=== PATIENT | male | born 1995 | race African-American/Black ===

== ENCOUNTER 2017-03-11 00:08 | Emergency (ER) | payer OTHER ==
[~2017-03-11] VITALS: Ht 167.6 cm; Wt 65.0 kg
[~2017-03-11 00:08] MED LIST: IBUPROFEN600 MG PO; NAPROSYN500 MG PO; ZANTAC150 MG PO
[2017-03-11 00:57] LABS: HEMATOCRIT 46.4 % (38.0-50.0); MCH 29.5 PG (29.0-34.0); MCHC 33.8 G/DL (30.0-36.0); MCV 87.1 FL (86-99); PLATELET COUNT 258 K/uL (156-360); RBC DIS.WIDTH-CV 12.8 % (11.8-14.6); RBC DIS.WIDTH-SD 40.3 % (39-53); RED BLOOD COUNT 5.33 M/uL (4.00-5.50); WHITE BLOOD COUNT 6.3 K/uL (4.1-10.2)
[2017-03-11 01:05] LABS: CHLORIDE 103 mEq/L (99-109); SODIUM 140 mEq/L (136-147)
[2017-03-11 01:07] LABS: GLUCOSE 96 mg/dL (70-99)
[2017-03-11 01:09] LABS: ANION GAP 9 MEQ/L (2-14)
[2017-03-11 01:11] LABS: GFR ESTIMATE (CALCULATED) > 59 mL/min/
[2017-03-11 01:12] LABS: UREA NITROGEN (BUN) 12 mg/dL (9-23)
[2017-03-11 01:18] LABS: TROP-I INTERPRETATION NEGATIVE; TROPONIN-I < 0.01 ng/mL (0.0-0.30)
[2017-03-11 04:01] LABS: TOTAL BILIRUBIN 0.8 mg/dL (0.0-1.0)
[2017-03-11 04:02] LABS: ALKALINE PHOSPHATASE 58 IU/L (3-129)
[2017-03-11 04:04] LABS: DIRECT BILIRUBIN 0.2 mg/dL (0.0-0.3)
[2017-03-11 04:05] LABS: LIPASE 26 U/L (1.0-51.0)
[2017-03-11] MEDS ORDERED: ZOFRAN8 MG PO (04:37)
[2017-03-11] MEDS ORDERED: PEPCID20 MG PO (04:37)
[2017-03-11 05:20] VITALS: BP 109/87
[2017-03-11] MEDS ORDERED: CIPRO500 MG PO (23:12)
== END 2017-03-11 05:22 | disposition home or self-care (01) ==
LOC: EME 00:08
DX: R10.13 Epigastric pain (principal)
CPT/HCPCS: 71020; 76705; 80048; 80076; 83690; 84484; 85027; 93005; 99281; 99284

== ENCOUNTER 2017-03-11 20:00 | Emergency (ER) | payer OTHER ==
[~2017-03-11] VITALS: Ht 167.6 cm; Wt 65.5 kg
[~2017-03-11 20:00] MED LIST changes: +PEPCID20 MG PO; +ZOFRAN8 MG PO
[2017-03-11 21:02] LABS: HEMATOCRIT 44.5 % (38.0-50.0); MCH 29.4 PG (29.0-34.0); MCHC 33.9 G/DL (30.0-36.0); MCV 86.7 FL (86-99); MEAN PLAT.VOLUME 11.4 uM^3 (9.0-12.4); PLATELET COUNT 225 K/uL (156-360); RBC DIS.WIDTH-CV 12.6 % (11.8-14.6); RBC DIS.WIDTH-SD 40.2 % (39-53); RED BLOOD COUNT 5.13 M/uL (4.00-5.50); WHITE BLOOD COUNT 7.1 K/uL (4.1-10.2)
[2017-03-11 21:14] LABS: CHLORIDE 104 mEq/L (99-109); POTASSIUM 3.8 mEq/L (3.7-5.4); SODIUM 139 mEq/L (136-147)
[2017-03-11 21:16] LABS: GLUCOSE 120 mg/dL (70-99)
[2017-03-11 21:17] LABS: ANION GAP 9 MEQ/L (2-14)
[2017-03-11 21:19] LABS: ALKALINE PHOSPHATASE 45 IU/L (3-129)
[2017-03-11 21:20] LABS: GFR ESTIMATE (CALCULATED) > 59 mL/min/
[2017-03-11 21:21] LABS: UREA NITROGEN (BUN) 9 mg/dL (9-23)
[2017-03-11 21:22] LABS: TOTAL BILIRUBIN 0.5 mg/dL (0.0-1.0)
[2017-03-11 21:23] LABS: LIPASE 19 U/L (1.0-51.0)
[2017-03-11 21:32] LABS: ADD MIUA? YES; BILIRUBIN NEGATIVE; BLOOD SMALL; COLOR YELLOW ((YELLOW)); GLUCOSE (STRIP) NEGATIVE; KETONES NEGATIVE; LEUKOCYTES LARGE; NITRITE NEGATIVE; PROTEIN (STRIP) NEGATIVE; SPECIFIC GRAVITY 1.008 (1.000-1.030); UROBILINOGEN 0.2 MG/DL (0.2-1.0)
[2017-03-11 22:17] LABS: WHITE BLOOD CELLS TNTC /HPF (0-5)
[2017-03-11 22:18] LABS: BACTERIA 1+ /HPF; EPITHELIAL CELLS RARE /HPF; MUCUS NONE SEEN /LPF; UCUL ADDED? YES
[2017-03-11 22:19] LABS: CASTS NONE SEEN /LPF; CRYSTALS NONE SEEN
[2017-03-11 22:20] LABS: RED BLOOD CELLS 0-5 /HPF (0-5)
[2017-03-11] MEDS ORDERED: CIPRO500 MG PO (23:12)
[2017-03-11 23:16] VITALS: BP 107/86
[2017-03-13 13:16] LABS: CHLAMYDIA TRACHOMATIS POSITIVE; NEISSERIA GONORRHOEAE NEGATIVE
== END 2017-03-11 23:16 | disposition home or self-care (01) ==
LOC: EME 20:00 → EXP 20:00
PROVIDERS: Physician Assistant
DX: K80.50 Calculus of bile duct without cholangitis or cholecystitis without obstruction (principal); N39.0 Urinary tract infection, site not specified; F17.200 Nicotine dependence, unspecified, uncomplicated
CPT/HCPCS: 80053; 81003; 83690; 85027; 87077; 87086; 87186; 87491; 87591; 99281; 99284; J1885